=== PATIENT | female | born 1970 | race Caucasian/White ===

== ENCOUNTER 2019-04-07 04:38 | Emergency (ER) | payer OTHER ==
[~2019-04-07] VITALS: Ht 162.6 cm; Wt 65.8 kg
[2019-04-07 05:43] VITALS: BP 126/81
== END 2019-04-07 05:43 | disposition left against medical advice (07) ==
LOC: M.ERS 04:38
DX: T76.11XA Adult physical abuse, suspected, initial encounter (principal); S60.229A Contusion of unspecified hand, initial encounter; X58.XXXA Exposure to other specified factors, initial encounter; Y93.89 Activity, other specified; Y92.89 Other specified places as the place of occurrence of the external cause; Y99.8 Other external cause status